=== PATIENT | male | born 1960 | race Caucasian/White ===

== ENCOUNTER → 2017-12-25 | Outpatient (CLI) | payer OTHER ==
[2016-11-01 14:08] VITALS: BP 116/72
== END ==
LOC: LAB 11:03
PROVIDERS: ATTEND Internal Medicine Gastroenterology
DX: K64.0 First degree hemorrhoids (principal)
CPT/HCPCS: 82274

== ENCOUNTER 2022-01-11 09:08 | Observation (INO) ==
[2022-01-11 13:13] LABS: BASOPHILS # (AUTO) 0.1 X10^3/uL (0.0-0.1); BASOPHILS % (AUTO) 0.9 % (0.2-1.0); EOSINOPHILS # (AUTO) 0.3 x10^3/uL (0.0-0.2); EOSINOPHILS % (AUTO) 3.5 % (0.9-2.9); HEMATOCRIT 38.5 % (42.0-54.0); HEMOGLOBIN 13.7 g/dL (13.5-18.0); LYMPHOCYTES # (AUTO) 1.8 X10^3/uL (1.3-2.9); LYMPHOCYTES % (AUTO) 22.5 % (21.0-51.0); MEAN CORPUSCULAR HEMOGLOBIN 31.9 pg (27.0-34.0); MEAN CORPUSCULAR HGB CONC 35.5 g/dL (33.0-35.0); MEAN CORPUSCULAR VOLUME 89.9 fL (80.0-100.0); MEAN PLATELET VOLUME 8.7 fL (7.4-11.0); MONOCYTES # (AUTO) 0.7 x10^3/uL (0.3-0.8); MONOCYTES % (AUTO) 9.4 % (0.0-13.0); NEUTROPHILS % (AUTO) 63.7 % (42.0-75.0); RED BLOOD COUNT 4.29 X10^6/uL (4.7-6.0); RED CELL DISTRIBUTION WIDTH 13.8 % (11.6-16.5); WHITE BLOOD COUNT 7.8 X10^3/uL (3.6-10.0)
[2022-01-11 13:20] VITALS: BMI 34.0
[2022-01-11 13:32] LABS: ALANINE AMINOTRANSFERASE 44 Units/L (12-78); ALBUMIN 3.9 g/dL (3.4-5.0); ALKALINE PHOSPHATASE 86 Units/L (46-116); ASPARTATE AMINO TRANSFERASE 29 Units/L (15-37); BLOOD UREA NITROGEN 14 mg/dL (7-18); CALCIUM 9.1 mg/dL (8.5-10.1); CARBON DIOXIDE 31.1 mmol/L (21-32); CHLORIDE 100 mmol/L (98-107); CKMB % 0.8 % (<4); CREATINE KINASE 366 Units/L (39-308); CREATINE KINASE MB 2.9 ng/mL (0-4.0); CREATININE 1.19 mg/dL (0.70-1.30); SODIUM 138 mmol/L (136-145); TOTAL PROTEIN 7.6 g/dL (6.4-8.2); eGFR NON BLACK RACES > 60 (>60)
[2022-01-11] MEDS: NS 1,000 ML IV 1,000 ML IV SCH (13:45)
--- NOTE | 2022-01-11 14:34 | CT ---
HISTORYsob,cp.brSTUDYCTA CHESTCOMPARISONChest radiograph 01/11/2022TECHNIQUEMultiple CT axial images of the chest were obtained with IV contrast. Coronal and sagittal images were reconstructed. 3D reconstructions using axial MIPS imaging was performed and reviewed. Dose reduction techniques included Automated Exposure Control (AEC) and adjustment of mA and kV.Stenoses are measured using NASCET criteria.FINDINGSPulmonary arteries are identified to subsegmental branches. There are no pulmonary emboli.The heart is normal in size. The pulmonary artery and aorta have a normal caliber. No mediastinal mass or significant lymphadenopathy.The thyroid has a normal size and configuration. No axillary mass or significant axillary lymphadenopathy is identified.The lungs are well inflated with no pneumonia or pleural effusion. No lung mass or suspicious nodule.Limited views of the upper abdomen show no significant abnormality.There is abnormal density in the L1 vertebra involving the vertebral body and the posterior elements. This might represent Paget disease. The overall size of the vertebra may be slightly larger than the adjacent vertebra also consistent with Paget disease. You might correlate this with biochemical markers if possible. We could also investigate this with MRI lumbar spine.IMPRESSION1. No pulmonary emboli2. No acute finding3. Findings suggesting L1 Paget diseaseElectronically signed by: Tramaine Lombardi (Jan 11, 2022 14:34:30)
--- NOTE | 2022-01-11 15:46 | RAD ---
HISTORYChest pain SOBSTUDYChest PA and lateral viewsCOMPARISONNoneFINDINGSHeart size and contour normal with clear lungs, normally inflated. No mediastinal, hilar or pleural abnormality noted.IMPRESSIONWithin normal limits.Electronically signed by: AKSHAT GARCIA (Jan 11, 2022 15:45:30)
[2022-01-11 16:41] LABS: BILIRUBIN,URINE NEGATIVE (NEGATIVE); BLOOD/HEMOGLOBIN,URINE NEGATIVE (NEGATIVE); GLUCOSE, URINE NEGATIVE (NEGATIVE); KETONES,URINE NEGATIVE (NEGATIVE); LEUKOCYTE ESTERASE ,URINE NEGATIVE (NEGATIVE); NITRITES,URINE NEGATIVE (NEGATIVE); PROTEIN,URINE 2+ (NEGATIVE); UROBILINOGEN,URINE NORMAL (NORMAL)
[2022-01-11 16:54] LABS: COLOR,URINE YELLOW (YELLOW)
[2022-01-11 16:55] LABS: APPEARANCE,URINE CLEAR (CLEAR); BACTERIA,URINE TRACE /HPF (NEGATIVE); RBC,URINE NONE SEEN /HPF (0-3); SQUAMOUS EPITHELIAL CELL,UR RARE /HPF (NEGATIVE)
[2022-01-11 18:41] LABS: CKMB % 0.7 % (<4); CREATINE KINASE MB 2.4 ng/mL (0-4.0)
[2022-01-11] MEDS ORDERED: POTASSIUM CHL 40 MEQ/NS 0.45% 500 ML IV PRN (19:39)
[2022-01-11] MEDS ORDERED: MAGNESIUM SULFATE 1 GRAM/100 mL PREMIX 1 G/100 ML BAG IV PRN (19:39)
[2022-01-11] MEDS ORDERED: POTASSIUM CHL 60 MEQ/NS 0.45% 500 ML IV PRN (19:39)
[2022-01-11] MEDS ORDERED: K-RIDER 10 MEQ/NS 100 ML 10 MEQ/100 ML BAG IV PRN (19:39)
[2022-01-11] MEDS ORDERED: MICRO K EXTEN CAP 10 MEQ PO PRN (19:39)
[2022-01-11] MEDS ORDERED: KLOR-CON PO PRN (19:39)
[2022-01-11] MEDS ORDERED: POTASSIUM CHLORIDE LIQ 20 MEQ UDC PO PRN (19:39)
[2022-01-11] MEDS: K-DUR TAB 20 MEQ PO PRN (20:39)
[2022-01-12 00:53] LABS: CKMB % 0.5 % (<4); CREATINE KINASE MB 1.7 ng/mL (0-4.0)
[2022-01-12] MEDS: NS 1,000 ML IV 1,000 ML IV SCH ×3 (02:07→16:51)
[2022-01-12 02:52] LABS: BASOPHILS # (AUTO) 0.1 X10^3/uL (0.0-0.1); EOSINOPHILS # (AUTO) 0.3 x10^3/uL (0.0-0.2); EOSINOPHILS % (AUTO) 4.4 % (0.9-2.9); HEMATOCRIT 37.7 % (42.0-54.0); HEMOGLOBIN 13.1 g/dL (13.5-18.0); LYMPHOCYTES # (AUTO) 2.5 X10^3/uL (1.3-2.9); LYMPHOCYTES % (AUTO) 32.2 % (21.0-51.0); MEAN CORPUSCULAR HEMOGLOBIN 31.8 pg (27.0-34.0); MEAN CORPUSCULAR HGB CONC 34.9 g/dL (33.0-35.0); MEAN CORPUSCULAR VOLUME 91.3 fL (80.0-100.0); MEAN PLATELET VOLUME 8.7 fL (7.4-11.0); MONOCYTES # (AUTO) 0.7 x10^3/uL (0.3-0.8); NEUTROPHILS # (AUTO) 4.2 x10^3/uL (2.2-4.8); NEUTROPHILS % (AUTO) 53.4 % (42.0-75.0); RED BLOOD COUNT 4.13 X10^6/uL (4.7-6.0); RED CELL DISTRIBUTION WIDTH 14.1 % (11.6-16.5); WHITE BLOOD COUNT 7.8 X10^3/uL (3.6-10.0)
[2022-01-12 03:00] LABS: ALANINE AMINOTRANSFERASE 39 Units/L (12-78); ALBUMIN 3.4 g/dL (3.4-5.0); ALKALINE PHOSPHATASE 83 Units/L (46-116); ASPARTATE AMINO TRANSFERASE 24 Units/L (15-37); BLOOD UREA NITROGEN 15 mg/dL (7-18); CALCIUM 8.5 mg/dL (8.5-10.1); CARBON DIOXIDE 30.2 mmol/L (21-32); CHLORIDE 102 mmol/L (98-107); COR NA(FOR HYPERGLY) 139 mmol/L (136-145); CREATININE 1.16 mg/dL (0.70-1.30); SODIUM 139 mmol/L (136-145); eGFR NON BLACK RACES > 60 (>60)
[2022-01-12] MEDS: K-DUR TAB 20 MEQ PO PRN (09:35)
[2022-01-12 12:53] LABS: CKMB % 0.7 % (<4); CREATINE KINASE MB 1.8 ng/mL (0-4.0)
[2022-01-12] MEDS: MOBIC TAB 15 MG PO SCH (13:19)
[2022-01-12 20:47] LABS: CKMB % 0.7 % (<4); CREATINE KINASE MB 1.8 ng/mL (0-4.0)
[2022-01-12] MEDS ORDERED: ZOCOR TAB 20 MG PO SCH (21:00)
[2022-01-13] MEDS: NS 1,000 ML IV 1,000 ML IV SCH ×2 (02:45→05:58)
[2022-01-13 05:02] LABS: BASOPHILS % (AUTO) 0.6 % (0.2-1.0); EOSINOPHILS # (AUTO) 0.4 x10^3/uL (0.0-0.2); EOSINOPHILS % (AUTO) 4.9 % (0.9-2.9); HEMATOCRIT 35.1 % (42.0-54.0); HEMOGLOBIN 12.2 g/dL (13.5-18.0); LYMPHOCYTES # (AUTO) 2.2 X10^3/uL (1.3-2.9); LYMPHOCYTES % (AUTO) 30.3 % (21.0-51.0); MEAN CORPUSCULAR HEMOGLOBIN 31.5 pg (27.0-34.0); MEAN CORPUSCULAR HGB CONC 34.7 g/dL (33.0-35.0); MEAN CORPUSCULAR VOLUME 90.9 fL (80.0-100.0); MEAN PLATELET VOLUME 8.6 fL (7.4-11.0); MONOCYTES # (AUTO) 0.5 x10^3/uL (0.3-0.8); MONOCYTES % (AUTO) 7.3 % (0.0-13.0); NEUTROPHILS # (AUTO) 4.1 x10^3/uL (2.2-4.8); NEUTROPHILS % (AUTO) 56.9 % (42.0-75.0); RED BLOOD COUNT 3.86 X10^6/uL (4.7-6.0); RED CELL DISTRIBUTION WIDTH 13.9 % (11.6-16.5); WHITE BLOOD COUNT 7.2 X10^3/uL (3.6-10.0)
[2022-01-13 05:22] LABS: ALANINE AMINOTRANSFERASE 33 Units/L (12-78); ALBUMIN 3.1 g/dL (3.4-5.0); ALKALINE PHOSPHATASE 75 Units/L (46-116); ASPARTATE AMINO TRANSFERASE 20 Units/L (15-37); BLOOD UREA NITROGEN 15 mg/dL (7-18); CALCIUM 8.1 mg/dL (8.5-10.1); CARBON DIOXIDE 28.1 mmol/L (21-32); CHLORIDE 108 mmol/L (98-107); CKMB % 0.8 % (<4); COR CA(FOR HYPOALB) 8.8 mg/dL (8.5-10.1); CREATINE KINASE 218 Units/L (39-308); CREATINE KINASE MB 1.8 ng/mL (0-4.0); CREATININE 1.17 mg/dL (0.70-1.30); SODIUM 142 mmol/L (136-145); TOTAL PROTEIN 6.2 g/dL (6.4-8.2); eGFR NON BLACK RACES > 60 (>60)
[2022-01-13] MEDS ORDERED: SYNTHROID 150 mcg TAB PO SCH (06:30)
[2022-01-13] MEDS ORDERED: HYZAAR 50/12.5 MG PO SCH (09:00)
[2022-01-13] MEDS: MOBIC TAB 15 MG PO SCH (09:05)
[2022-01-13 12:44] VITALS: BP 134/68
--- NOTE | 2022-01-30 22:46 | DR.H&P ---
H&P - History & Physical for Day of: H&P Date: 01/11/22 - Chief Complaint Chief Complaint: CHEST PAIN, SHORTNESS OF BREATH - History of Present Illness History of Present Illness: PATIENT WAS A DIRECT ADMISSION FROM THE OFFICE DUE TO COMPLAINTS OF CHEST PAIN AND SHORTNESS OF BREATH X 2 DAYS. PAIN IS WORSE ON EXERTION AND WHEN TAKING A DEEP BREATH. PAIN IS DESCRIBED MIDSTERNAL, SHARP, AND INTERMITTENT. HE RATED PAIN A 5/10 ON ADMISSION. ASSOCIATED SYMPTOMS INCLUDE DIZZINESS AND DIAPHORESIS. ON ARRIVAL TO THE HOSPITAL, VITALS WERE 98.1-85-18-94%-140/79. LABS WERE OBTAINED. WBC 7.8, RBC 4.29, HGB 13.7, HCT 38.5, SODIUM 138, POTASSIUM 3.3, CHLORIDE 100, BUN 14, CREATININE 1.19, GLUCOSE 88, CALCIUM 9.1, TOTAL PROTEIN 7.6, ALBUMIN 3.9. CREATINE KINASE 366, CARDIAC ENZYMES WERE OTHERWISE NORMAL. URINALYSIS WAS UNREMARKABLE. COVID-19 NEGATIVE. A CHEST CTA WAS OBTAINED AND REVEALED: 1. No pulmonary emboli 2. No acute finding 3. Findings suggesting L1 Paget disease. CHEST XRAY WAS WITHIN NORMAL LIMITS. EKG OBTAINED AND REVEALED NSR WITH HR 68. SHE WAS STARTED ON NORMAL SALINE AT 80 ML/HR, LOSARTAN 50/12.5 2 TABS PO DAILY, LEVOTHYRXINE 150MCG PO DAILY, MELOXICAM 15MG PO DAILY, SIMVASTATIN 20MG PO HS, AND THE POTASSIUM AND MAGNESIUM PROTOCOLS. WE PLAN TO OBTAIN AN ECHO IN THE MORNING. WE WILL OBTAIN SERIAL CARDIAC ENZYMES AND EKGS AND CONTINUE TO MONITOR. OTHERWISE, WE WILL FOLLOW-UP WITH AM LABS AND CONTINUE TO MONITOR. TIME SPENT ON CLINICAL ASSESSMENT, REVIEWING LABS AND IMAGING, DECISION MAKING, AND DOCUMENTATION GREATER THAN 75 MINUTES. - Past Medical History Past Medical History: Dyslipidemia, Gout, Hypertension, Hyperthyroidism - Past Surgical History Surgical History: Ortho Surgery - Family History Family Medical History: Diabetes Mellitus - Social History Does patient currently use any type of tobacco product: No Have you used tobacco products in the last 12 months: No Type of Tobacco Use: None Does any household member use tobacco: No Alcohol Use: Occasionally Drug Use: None - Medications Home Medications: No Known Drug Allergies Allergy (Verified 01/11/22 13:15) CONTINUE taking the following medications levothyroxine 150 mcg PO DAILY 01/11/22 [History] losartan-hydrochlorothiazide 1 tab PO DAILY 01/11/22 [History] meloxicam 15 mg PO DAILY 01/11/22 [History] simvastatin 20 mg PO HS 01/11/22 [History] New Prescriptions aspirin [Ecotrin] 325 mg PO DAILY #30 tab 01/13/22 [Rx] levothyroxine 150 mcg PO DAILY@0630 tab 01/13/22 [Rx] losartan-hydrochlorothiazide 2 tab PO DAILY tab 01/13/22 [Rx] meloxicam 15 mg PO DAILY tab 01/13/22 [Rx] rosuvastatin [Crestor] 10 mg PO HS #30 tab 01/13/22 [Rx] simvastatin 20 mg PO HS tab 01/13/22 [Rx] - Review of Systems Constitutional: No Symptoms Reported Eyes: No Symptoms Reported ENT: No Symptoms Reported Respiratory: Shortness of Breath, SOB with Excertion Cardiovascular: Chest Pain, Light Headedness Gastrointestinal: No Symptoms Reported Genitourinary: No Symptoms Reported Musculoskeletal: No Symptoms Reported Skin: No Symptoms Reported Neurological: Weakness - Physical Exam Vital Signs: Temperature 97.8 F Pulse Rate [Right Radial] 56 Respiratory Rate 18 Blood Pressure [Right Arm] 134/68 Blood Pressure 110/68 O2 Sat by Pulse Oximetry 100 Oriented: Normal Eyes: Normal Ear: Normal Nose: Normal Throat: Normal Respiratory: Clear Throughout Cardiovascular: Normal : Normal Auscultation: Bowel Sounds: Normal Palpation: Normal Tenderness: Normal Skin: Normal Musculoskeletal: Normal Psychiatric: Normal Mood Description: Calm Affect: Normal Speech Pattern: Clear - Assessment/Plan (1) Chest pain, rule out acute myocardial infarction Status: Acute Plan: ADMIT, SUPPLEMENTAL OXYGEN, OBTAIN SERIAL CARDIAC ENZYMES AND EKGS, NORMAL SALINE AT 80 ML/HR, LOSARTAN 50/12.5 2 TABS PO DAILY, LEVOTHYRXINE 150MCG PO DAILY, MELOXICAM 15MG PO DAILY, SIMVASTATIN 20MG PO HS, AND THE POTASSIUM AND MAGNESIUM PROTOCOLS. (2) Dyspnea Qualifiers: Dyspnea type: shortness of breath Qualified Code(s): R06.02 - Shortness of breath Status: Acute (3) HTN (hypertension) Qualifiers: Hypertension type: primary hypertension Qualified Code(s): I10 - Essential (primary) hypertension Status: Chronic (4) Hypothyroidism Qualifiers: Hypothyroidism type: acquired Qualified Code(s): E03.9 - Hypothyroidism, unspecified Status: Chronic (5) Hyperlipidemia Qualifiers: Hyperlipidemia type: mixed hyperlipidemia Qualified Code(s): E78.2 - Mixed hyperlipidemia Status: Chronic (6) Gout Qualifiers: Gout site: unspecified site Gout etiology: unspecified cause Chronicity: chronic Status: Chronic - Allergies Allergies/Adverse Reactions: Allergies Allergy/AdvReac Type Severity Reaction Status Date / Time No Known Drug Allergies Allergy Verified 01/11/22 13:15
== END 2022-01-13 12:15 | disposition home or self-care (01) ==
LOC: MED/SURG
PROVIDERS: ADMIT Internal Medicine; ATTEND Internal Medicine
DX: R42 Dizziness and giddiness; I10 Essential (primary) hypertension; R07.89 Other chest pain; E78.2 Mixed hyperlipidemia; E03.8 Other specified hypothyroidism; E87.6 Hypokalemia; M1A.9XX0 Chronic gout, unspecified, without tophus (tophi); R06.02 Shortness of breath; Z20.822 Contact with and (suspected) exposure to COVID-19